=== PATIENT | female | born 1995 | race Two or more races ===

== ENCOUNTER 2018-09-03 18:54 | Emergency (ER) | payer OTHER ==
[~2018-09-03] VITALS: Ht 157.5 cm; Wt 58.1 kg
== END 2018-09-03 22:47 | disposition home or self-care (01) ==
LOC: ER 18:54
DX: J06.9 Acute upper respiratory infection, unspecified (principal)

== ENCOUNTER 2019-09-22 22:45 | Emergency (ER) | payer OTHER ==
[~2019-09-22] VITALS: Ht 162.6 cm; Wt 62.6 kg
== END 2019-09-23 00:41 | disposition home or self-care (01) ==
LOC: ER 22:45
DX: R51 Headache (principal)

== ENCOUNTER 2021-03-31 03:49 | Emergency (ER) | payer OTHER ==
[~2021-03-31] VITALS: Ht 157.5 cm; Wt 68.9 kg
[2021-03-31] MEDS ORDERED: ZITHROMAX500 MG PO (10:17)
== END 2021-03-31 11:21 | disposition home or self-care (01) ==
LOC: ER 03:49
DX: J06.9 Acute upper respiratory infection, unspecified (principal); Z03.818 Encounter for observation for suspected exposure to other biological agents ruled out